=== PATIENT | male | born 1960 ===

== ENCOUNTER 2016-12-17 21:36 | Day surgery (SDC) | payer OTHER ==
--- NOTE | ~2016-12-17 | OR ---
PATIENT'S NAME: CHASIDY TURNER [facility] AGE: 56 Y [address] ROOM: [place], [place] [address] LOCATION: [facility] [place] ADMIT DATE: 12/17/2016 OR/Procedure Report DISCHARGE DATE: 12/18/2016 FAMILY PHYSICIAN: Physician, Unknown ATTENDING PHYSICIAN: Audra Degroot SURGEON: Audra Degroot DO JIG FILLER: DATE OF PROCEDURE: 12/17/[address] DEGROOT / 12-29-2016 / ROBIN PREOPERATIVE DIAGNOSIS: Right dominant thumb open tuft fracture. POSTOPERATIVE DIAGNOSIS: Right dominant thumb open tuft fracture with damage to the nail bed. PROCEDURE PERFORMED: Irrigation, debridement, and repair of nail bed and re- splinting of the nail with splinting of the right thumb. ANTIBIOTICS: 2 g IV Ancef. Tetanus was updated in the ED. COMPLICATIONS: None. ANESTHESIA: Local digital nerve block with IV sedation. ESTIMATED BLOOD LOSS: Less than 1 mL. INDICATIONS: Chasidy Turner is a right-hand dominant 56-year-old male, who received a crush injury with the gate shut on his right dominant thumb. He was seen at emergency room at [place] with x-rays confirming tuft fracture right dominant thumb distal phalanx. With open laceration, I recommend irrigation and debridement. He understands the risks, benefits, and potential complications to include, chronic pain, stiffness, nonunion, malunion, infection that he can get in the bone called osteomyelitis. He understands the potential for reaction to medication including anaphylaxis. DESCRIPTION OF PROCEDURE: Having been well informed, the patient brought back to the operative suite and placed under conscious IV sedation with digital nerve block using 10 mL of 0.5% plain Marcaine. Irrigation debridement with 3 L. The nail removed and the nail bed repaired and irrigated. The nail was placed on the back table in Betadine. The laceration was closed with Prolene in a simple interrupted fashion. The nail bed was then Dermabonded back in place after the nail bed repaired with catgut suture. A splint was placed with sterile dressing. Sponge and needle counts correct x3. Normal physician directed time-out performed. No complications. Blood loss was less than 1 mL. PATIENT'S NAME: CHASIDY TURNER [facility] AGE: 56 Y [address] ROOM: [place], [place] [address] LOCATION: [facility] [place] ADMIT DATE: 12/17/2016 OR/Procedure Report DISCHARGE DATE: 12/18/2016 FAMILY PHYSICIAN: Physician, Hillary ATTENDING PHYSICIAN: Audra Degroot AUDRA DEGROOT DO PH/modl /[id number] CORRECTED PER DR. DEGROOT / 12-29-2016 / KLD d: 12/18/16 0233 t: 01/04/17 1454, OPERATIVE SUMMARY
--- NOTE | ~2016-12-17 | CON ---
PATIENT'S NAME: CHASIDY AMARO [facility] AGE: 56 Y [address] ROOM: [place] [id number] LOCATION: [facility] [place] ADMIT DATE: 12/17/2016 Consultation DISCHARGE DATE: 12/18/2016 FAMILY PHYSICIAN: Physician, Unknown ATTENDING PHYSICIAN: Orlando Degroot REFERRING PHYSICIAN: Orlando Degroot DO CHIEF COMPLAINT: Right thumb pain. HISTORY OF PRESENT ILLNESS: This is a 56-year-old male, who was working on a fence and got his thumb caught between a gate. He was seen by Dr. Hernadez in [facility], who consulted me regarding a distal phalanx fracture of his right dominant thumb. There is a laceration associated with this. I told him to treat this as open fracture, to make sure he initiated antibiotics and updated his tetanus. Cover it with sterile dressing and splint, sent him to [facility] here for definitive care. PAST MEDICAL HISTORY: Reviewed. The patient denies any medical conditions. PAST SURGICAL HISTORY: None. CURRENT MEDICATIONS: None. ALLERGIES: NONE. REVIEW OF SYSTEMS: The patient is not a smoker. He denies any cardiac or lung problems or any prior infections or medical problems. He does occasionally drink alcohol but denies any other poor health habits. PHYSICAL EXAMINATION: GENERAL: He is alert and oriented x3, in no acute distress. HEAD: Normocephalic, atraumatic. NECK: Supple. Trachea midline. LUNGS: The patient breathes without use of accessory muscles, with clear lung sounds. ABDOMEN: Soft, nontender, n.p.o. status verified since 1400 hours. MUSCULOSKELETAL: Exam of sensation could not be performed as the patient had a digital nerve block prior. We did not exam and range of motion as he has a laceration over the dorsal aspect near the nail bed with a crush injury PATIENT'S NAME: CHASIDY AMARO [facility] AGE: 56 Y [address] ROOM: [place] [address] LOCATION: [facility] [place] ADMIT DATE: 12/17/2016 Consultation DISCHARGE DATE: 12/18/2016 FAMILY PHYSICIAN: Physician, Unknown ATTENDING PHYSICIAN: Orlando Degroot affecting the distal phalanx. IMPRESSION AND PLAN: With this open tuft fracture, we discussed the risks, benefits, potential complications of surgery. We recommend irrigation, debridement nail bed repair, and splinting of the fracture. The x-rays did show a comminuted crush injury of the distal phalanx with the open laceration. I had confirmed the update of his tetanus and received antibiotics here in the preop arena. He understands the risk of nail bed deformity permanent, abnormality about the nail bed, potential for nonunion and malunion of the fracture site, potential chronic pain or stiffness. Having been well informed, the patient will be brought back to the operating room. ORLANDO DEGROOT DO PH/modl /[id number] d: 12/18/16 0325 t: 12/22/16 1839, CONSULTATION REPORT
[2016-12-17] MEDS ORDERED: COZAAR100 MG PO (22:10)
[2016-12-17] MEDS ORDERED: NORCO 7.5-3251 EACH PO (23:59)
[2016-12-18] MEDS ORDERED: AUGMENTIN250 MG
== END 2016-12-18 00:25 | disposition disaster alternative care site (69) ==
LOC: GACC 21:36 → GSDC 22:02
PROC: 0HQQXZZ Repair Finger Nail, External Approach (ICD-10-PCS; principal; 2016-12-17)
DX: S62.521B Displaced fracture of distal phalanx of right thumb, initial encounter for open fracture (principal); X58.XXXA Exposure to other specified factors, initial encounter
CPT/HCPCS: J0690; J7120